=== PATIENT | female | born 1955 | race Caucasian/White ===

== ENCOUNTER 2018-08-01 07:00 | Inpatient (IN) | payer OTHER ==
[2018-08-01] MEDS ORDERED: FAMOTIDINE 20 MG/2 ML VIAL ONE ×3 (07:18→08:48)
[2018-08-01] MEDS ORDERED: LACTATED RINGERS 1,000 ML IV ONE (07:18)
[2018-08-01] MEDS ORDERED: SCOPOLAMINE HYDROBROMIDE 1.5MG/72HR PATCH TD ONE (07:18)
[2018-08-01] MEDS ORDERED: ENOXAPARIN SODIUM 40 MG/0.4 ML DISP.SYRIN SQ ONE ×2 (07:18→08:48)
[2018-08-01] MEDS ORDERED: LEVALBUTEROL NEB 1.25 MG/3 ML VIAL.NEB IH ONE (07:47)
[2018-08-01] MEDS ORDERED: ONDANSETRON HCL/PF 4 MG/ 2ML VIAL ONE ×3 (08:08→08:48)
[2018-08-01] MEDS ORDERED: BUPIV. HCL 0.25% (2.5MG/ML)/EPI. (1:200,000) PF 30 ML VIAL IJ ONE (08:48)
[2018-08-01] MEDS ORDERED: LIDOCAINE HCL 1% PF 300MG/30ML VIAL ONE (08:48)
[2018-08-01] MEDS ORDERED: SUGAMMADEX SODIUM 200 MG/2 ML VIAL IV ONE (08:48)
[2018-08-01] MEDS ORDERED: KETOROLAC TROMETHAMINE 30 MG/1ML VIAL ONE (08:48)
[2018-08-01] MEDS ORDERED: SEVOFLURANE 250 ML LIQUID IH ONE (08:48)
[2018-08-01] MEDS ORDERED: ROCURONIUM BROMIDE 10 MG/ML 5ML VIAL ONE (08:48)
[2018-08-01] MEDS ORDERED: LACTATED RINGERS 1,000 ML IV.SOLN IV ONE ×2 (08:48)
[2018-08-01] MEDS ORDERED: LIDOCAINE HCL 2% PF 100MG/5ML VIAL IJ ONE (08:48)
[2018-08-01] MEDS ORDERED: HYDROmorphone HCL/PF 2 MG/ML VIAL ONE ×2 (08:48→12:04)
[2018-08-01] MEDS ORDERED: DEXAMETHASONE SODIUM PHOSPHATE 10 MG/ML VIAL ONE (08:48)
[2018-08-01] MEDS ORDERED: SODIUM CHLORIDE IRRIG SOLUTION 3,000 ML IRRIG.SOLN IR ONE (08:48)
[2018-08-01] MEDS ORDERED: LEVALBUTEROL HCL 1.25 MG/3 ML AMPUL.NEB NEB ONE ×2 (08:48)
[2018-08-01] MEDS ORDERED: FENTANYL CITRATE/PF 250 MCG/5 ML INJ. ONE (08:48)
[2018-08-01] MEDS ORDERED: PROPOFOL 200 MG/20 ML VIAL IV ONE (08:48)
[2018-08-01] MEDS ORDERED: CLINDAMYCIN PHOSPHATE 900 MG/6 ML VIAL ONE (08:48)
[2018-08-01] MEDS ORDERED: PROMETHAZINE HCL 25 MG in 0.9 % SODIUM CHLORIDE 50 ML IV PRN (13:21)
[2018-08-01] MEDS ORDERED: MORPHINE SULFATE 4 MG/ML VIAL IVP PRN (13:21)
[2018-08-01] MEDS ORDERED: KETOROLAC TROMETHAMINE 30 MG/1ML VIAL IVP PRN (13:21)
--- NOTE | 2018-08-01 13:41 | History and Physical Report ---
History of Present Illnes - History of Present Illness Reason for Visit: S/P Gastric Sleeve History of Present Illness: Patient is a 63-year-old female who has tried multiple diets and exercise programs with no success. She states that she has always been overweight- she gained even more weight after having children. Her depression also has caused her to eat more than usual. Patient and surgeon decided to proceed with gastric sleeve procedure. Procedure went well without complications- patient will be admitted and monitored s/p surgical intervention. - Past Medical History Pulmonary: Asthma, COPD Gastrointestinal: GERD Hepatobiliary: Cirrhosis, Hep A/B/C (Hep C) Psych: Depression Musculoskeletal: Osteoarthritis Renal/: Other (Urinary stress incontinence) Endocrine: obesity Grav: 3 Para: 3 Ab: 1 (1 twin ) - Past Surgical History Past Surgical History: Cholecystectomy, Cataract Removal, Hysterectomy, Other (knee replacement. rectal surgery), Tubal Ligation, Other (bladder surgery) - Past Family History Mother Family History: DM Father Family History: CAD, DM, Hyperlipidemia - Past Social History Smoke: Quit Occupation: Disabled Alcohol: None Drugs: None Lives: With Family Domestic Violence: Negative - Health Maintenance Health Maintenance: Influenza Vaccine, Pneumococcal Vaccine, Mammogram Influenza Vaccine: Current for this Influenza Season Pneumonia Vaccine: Yes Resuscitation Status: Resusciation Status Resuscitation Status Full Code - Unable to Obtain History Unable to Obtain: No Review of Systems - Review of Systems Constitutional: negative: Fever, Chills Eyes: negative: pain, vision change ENT: negative: Ear Pain, Nose Pain, Throat Pain Respiratory: SOB with Excertion. negative: Cough, Shortness of Breath Cardiovascular: negative: Chest Pain, Light Headedness Gastrointestinal: Abdominal Pain (mild abdominal pain s/p surgery). negative: Nausea, Vomiting Genitourinary: Incontinence (stress) Musculoskeletal: negative: Back Pain Skin: negative: Rash Neurological: negative: Weakness, Confusion - Medications/Allergies Allergies/Adverse Reactions: Allergies Allergy/AdvReac Type Severity Reaction Status Date / Time ciprofloxacin [From Cipro] Allergy Verified 08/01/18 13:46 latex Allergy Verified 08/01/18 13:46 lorazepam [From Ativan] Allergy Verified 08/01/18 13:46 Penicillins Allergy Verified 08/01/18 13:46 sertraline [From Zoloft] Allergy Verified 08/01/18 13:46 Home Medications: Home Medications Amantadine HCl [Amantadine] 100 mg PO DAILY 08/01/18 Amitriptyline HCl 25 mg PO HS 08/01/18 CloNIDine HCL [Catapress] 0.1 mg PO DAILY 08/01/18 Esomeprazole Magnesium [Nexium] 40 mg PO DAILY 08/01/18 Fluticasone/Umeclidin/Vilanter [Trelegy Ellipta 100-62.5-25] 1 puff PO DAILY 08/01/18 Gabapentin 300 mg PO HS 08/01/18 Hydroxyzine HCl 1 - 2 tab PO TID 08/01/18 Ondansetron HCl Rapdis [Zofran ODT] 4 mg SL TID 08/01/18 Quetiapine Fumarate 300 mg PO PM 08/01/18 Vortioxetine Hydrobromide [Trintellix] 10 mg PO DAILY 08/01/18 Current Inpatient Medications: Current Inpatient Medications Enoxaparin Sodium (Lovenox) 40 mg SQ QD [facility] Stop: 08/16/18 13:59 Famotidine (Pepcid) 20 mg IVP BID [facility] Stop: 08/05/18 20:59 Clindamycin Phosphate 600 mg/ (PREMIX BAG) 50 mls @ 50 mls/hr IV Q8H [facility] Stop: 08/02/18 04:29 Sodium Chloride (Normal Saline) 1,000 mls @ 150 mls/hr IV Q8H [facility] Promethazine HCl 25 mg/ Sodium (Chloride) 51 mls @ 200 mls/hr IV Q6 PRN PRN Reason: Nausea / Vomiting Stop: 08/05/18 13:20 Ketorolac Tromethamine (Toradol) 30 mg IVP Q6 PRN PRN Reason: For Mild Pain Stop: 08/05/18 13:20 Morphine Sulfate (Morphine Sulfate) 2 mg IVP Q2 PRN PRN Reason: MODERATE PAIN Stop: 08/05/18 13:20 Ondansetron HCl (Zofran 4 Mg/2 Ml) 4 mg IVP Q6H PRN PRN Reason: Nausea / Vomiting Stop: 08/05/18 13:20 Oxycodone HCl (Oxycodone Soln) 5 mg PO Q6H PRN PRN Reason: Pain 5-7 Exam - Exam General: Alert, Oriented to Person, Oriented to Place, Oriented to Time, Cooperative, No acute distress, Obese HEENT: Atraumatic, PERRLA, Mouth Mucous membr. moist/[place], Nose Mucous membr. moist/[place] Neck: Normal Range of Motion Carotids: No bruit Lungs: Clear to auscultation, Normal air movement, Speaks full Sentences Cardiovascular: Regular rate, Normal S1, Normal S2 Peripheral Edema: NOne Peripheral Pulses: 2+ Abdomen: Soft, Decreased Bowel Sounds Integumentary: Normal, [place], Warm, Dry, Other (incisions are dry and intact) Extremities: No edema, Normal pulses, No tenderness/swelling Neurological: Normal gait, Normal speech, Strength Equal Bilat, Sensation intact Psych/Mental Status: Mental status NL, Mood NL, Appropriate Affect, Intact Judgment Assessment/Plan - Assessment/Plan (1) S/P gastric surgery Status: Acute Current Visit: Yes Assessment: Incisions are without redness/erythema, legs are without tenderness/pain, LCTA Plan: Will monitor incision sites, patient will be placed on Lovenox daily, frequent ambulation and SCDs while in bed, patient will use incentive spirometer to prevent resp. infections, will start PPI, and will give IVFs until patient can tolerate PO (2) Obesity Status: Acute Current Visit: Yes Qualifiers: Obesity type: due to excess calories Assessment: S/P gastric sleeve (3) COPD (chronic obstructive pulmonary disease) Status: Acute Current Visit: Yes Qualifiers: COPD type: unspecified COPD Qualified Code(s): J44.9 - Chronic obstructive pulmonary disease, unspecified Assessment: LCTA- will continue to monitor lung sounds and oxygen sats Plan: Will use incentive spirometer frequently, listen to lung sounds, obtain pulse ox and administer nebulizer as needed (4) GERD (gastroesophageal reflux disease) Status: Acute Current Visit: Yes Assessment: stable on home meds Plan: Will give Pepcid IV BID (5) Depression Status: Acute Current Visit: Yes Assessment: Stable on home meds Plan: Will continue home medication as soon as patient can tolerate oral (6) Osteoarthritis Status: Acute Current Visit: Yes Assessment: Stable on home meds Plan: Will continue with medications for comfort VTE Assessment - RISK FACTOR SCORE VTE RISK FACTOR SCORES: AGE OVER 60 YEARS, OBESITY, MAJOR SURGERY/ANESTHESIA TIME > 1 HOUR - RISK VTE HIGH RISK: SCORE OF 3-4 (RISK PROXIMAL DVT 4-8%) PROPHYLAXIS NEEDED (lovenox daily, frequent ambulation, SCDs while in bed)
[2018-08-01 13:58] VITALS: BMI 38.4
[2018-08-01] MEDS: 0.9 % SODIUM CHLORIDE 1,000 ML IV SCH ×2 (14:37→21:30)
[2018-08-01] MEDS: OXYCODONE HCL 5 MG/5 ML SOLN UD CUP PO PRN (18:00)
[2018-08-01] MEDS: CLINDAMYCIN PHOSPHATE/D5W 600 MG in PREMIX BAG 1 BAG IV SCH (19:30)
[2018-08-01] MEDS ORDERED: CLINDAMYCIN PHOSPHATE/D5W 50 ML IV ONE ×2 (19:32→20:29)
[2018-08-01] MEDS: ONDANSETRON HCL/PF 4 MG/ 2ML VIAL IVP PRN (20:20)
[2018-08-01] MEDS ORDERED: 0.9 % SODIUM CHLORIDE 50 ML IV ONE (20:30)
[2018-08-01] MEDS ORDERED: QUETIAPINE FUMARATE 300 MG PO SCH (21:00)
[2018-08-01] MEDS: FAMOTIDINE 20 MG/2 ML VIAL IVP SCH (21:25)
[2018-08-01] MEDS: GABAPENTIN 300 MG CAPSULE PO SCH (21:29)
[2018-08-01] MEDS: SALINE FLUSH 10 ML DISP.SYRIN IVF SCH (21:29)
[2018-08-02] MEDS: CLINDAMYCIN PHOSPHATE/D5W 600 MG in PREMIX BAG 1 BAG IV SCH (03:50)
[2018-08-02] MEDS: 0.9 % SODIUM CHLORIDE 1,000 ML IV SCH ×3 (05:15→20:36)
[2018-08-02] MEDS: SALINE FLUSH 10 ML DISP.SYRIN IVF SCH ×2 (08:05→20:36)
[2018-08-02] MEDS: FAMOTIDINE 20 MG/2 ML VIAL IVP SCH ×2 (08:55→20:39)
[2018-08-02] MEDS: OXYCODONE HCL 5 MG/5 ML SOLN UD CUP PO PRN ×2 (08:55→19:09)
[2018-08-02] MEDS: AMANTADINE HCL 100 MG PO SCH (09:34)
[2018-08-02] MEDS: VORTIOXETINE HYDROBROMIDE 10 MG PO SCH (09:35)
--- NOTE | 2018-08-02 10:49 | Inpatient Progress Note ---
Subjective - Required Recertification Statement I anticipate X number of days because-include discharge plan: 1 - Review of Systems Subjective: Patient feeling pretty good. [place] a little wheezy this am. Has significant COPD. Using her trelegy. Objective - Exam Vitals and I&O: Vital Signs Temp 97.6 F 08/02/18 09:00 Pulse 70 08/02/18 09:00 Resp 18 08/02/18 09:00 BP 145/72 08/02/18 09:00 Pulse Ox 97 08/02/18 09:00 Intake & Output 08/01/18 08/01/18 08/02/18 11:59 23:59 11:59 Intake Total 450 Output Total 2300 200 Balance -1850 -200 Weight 80.5 kg Intake: IV 450 Left Wrist 450 Output: Urine 2300 200 Other: Voiding Method Toilet # Voids 1 # Bowel Movements 0 General: Alert, Oriented to Person, Oriented to Place, Oriented to Time, Cooperative, No acute distress Lungs: Clear to auscultation, Normal air movement, Speaks full Sentences Cardiovascular: Regular rate Abdomen: Normal bowel sounds, Soft Assessment/Plan - Assessment/Plan (1) COPD (chronic obstructive pulmonary disease) Status: Acute Current Visit: Yes Qualifiers: COPD type: unspecified COPD Qualified Code(s): J44.9 - Chronic obstructive pulmonary disease, unspecified Plan: Patient has xopenex if needed. (2) S/P gastric surgery Status: Acute Current Visit: Yes Plan: Doing well.
[2018-08-02] MEDS: ENOXAPARIN SODIUM 40 MG/0.4 ML DISP.SYRIN SQ SCH (14:23)
[2018-08-02] MEDS: GABAPENTIN 300 MG CAPSULE PO SCH (20:36)
[2018-08-02] MEDS ORDERED: QUETIAPINE FUMARATE 200 MG PO SCH (21:00)
[2018-08-02] MEDS: ONDANSETRON HCL/PF 4 MG/ 2ML VIAL IVP PRN (23:51)
[2018-08-03] MEDS: 0.9 % SODIUM CHLORIDE 1,000 ML IV SCH (02:36)
[2018-08-03] MEDS: FAMOTIDINE 20 MG/2 ML VIAL IVP SCH (08:04)
[2018-08-03] MEDS: ENOXAPARIN SODIUM 40 MG/0.4 ML DISP.SYRIN SQ SCH (08:06)
[2018-08-03] MEDS: VORTIOXETINE HYDROBROMIDE 10 MG PO SCH (08:08)
[2018-08-03] MEDS: OXYCODONE HCL 5 MG/5 ML SOLN UD CUP PO PRN (08:08)
[2018-08-03] MEDS: SALINE FLUSH 10 ML DISP.SYRIN IVF SCH (08:10)
--- NOTE | 2018-08-03 09:16 | Discharge Summary ---
Discharge Summary - Discharge Sumary History of Present Illness: Patient is a 63-year-old female who has tried multiple diets and exercise programs with no success. She states that she has always been overweight- she gained even more weight after having children. Her depression also has caused her to eat more than usual. Patient and surgeon decided to proceed with gastric sleeve procedure. Condition at Discharge: Stable Home Medications: Ambulatory Orders Medication Instructions Recorded Amantadine HCl [Amantadine] 100 mg PO DAILY 08/01/18 Amitriptyline HCl 25 mg PO HS 08/01/18 CloNIDine HCL [Catapress] 0.1 mg PO DAILY 08/01/18 Esomeprazole Magnesium [Nexium] 40 mg PO DAILY 08/01/18 Fluticasone/Umeclidin/Vilanter 1 puff PO DAILY 08/01/18 [Trelegy Ellipta 100-62.5-25] Gabapentin 300 mg PO HS 08/01/18 Hydroxyzine HCl 1 - 2 tab PO TID 08/01/18 Ondansetron HCl Rapdis [Zofran ODT] 4 mg SL TID 08/01/18 Quetiapine Fumarate 300 mg PO PM 08/01/18 Vortioxetine Hydrobromide 10 mg PO DAILY 08/01/18 [Trintellix] Consultations this Visit: None Procedures this Visit: Other (Gastric sleeve) Allergies/Adverse Reactions: Allergies Allergy/AdvReac Type Severity Reaction Status Date / Time ciprofloxacin [From Cipro] Allergy Verified 08/01/18 13:46 latex Allergy Verified 08/01/18 13:46 lorazepam [From Ativan] Allergy Verified 08/01/18 13:46 Penicillins Allergy Verified 08/01/18 13:46 sertraline [From Zoloft] Allergy Verified 08/01/18 13:46 Patient Problems: Current Active Problems Problem Status Onset COPD (chronic obstructive pulmonary disease) Acute Depression Acute GERD (gastroesophageal reflux disease) Acute Obesity Acute Osteoarthritis Acute S/P gastric surgery Acute Discharge Summary: Gastric sleeve was performed on hospital day #1. She had no intraoperative or postoperative complications. She was able to eat small amounts of broth as well as some Jello. She was discharged to home with routine teaching and follow up appt will be at [facility] on 08/08/18 at 10:30 am.
[2018-08-03 12:04] VITALS: BP 152/82
[2018-08-03] MEDS: AMANTADINE HCL 100 MG PO SCH (12:17)
== END 2018-08-03 11:25 | disposition home or self-care (01) | DRG 621 ==
LOC: OPSURG 07:00 → SOUTH 13:13
PROVIDERS: ADMIT Nurse Practitioner Family; ATTEND Nurse Practitioner Family
DX: E66.01 Morbid (severe) obesity due to excess calories (principal); Z68.43 Body mass index [BMI] 50.0-59.9, adult; K21.9 Gastro-esophageal reflux disease without esophagitis; G89.18 Other acute postprocedural pain; J44.9 Chronic obstructive pulmonary disease, unspecified; R11.0 Nausea; M19.90 Unspecified osteoarthritis, unspecified site; F32.9 Major depressive disorder, single episode, unspecified
CPT/HCPCS: 43235; 99231; 99232; 99238; J1170; J1650; J1885; J2001; J2405; J2704; J7614; 43775; A9270-GY; J7030; J7120; S1016